=== PATIENT | male | born 1980 | race African-American/Black ===

== ENCOUNTER 2017-08-04 07:13 | Emergency (ER) | payer OTHER ==
[~2017-08-04] VITALS: Ht 165.1 cm; Wt 64.0 kg
[~2017-08-04 07:13] MED LIST: AMOX500C2 PO; CEFP250T2 PO; CODE-54 PO; CPR500T PO; HYDR-3714 PO; HYDR-3720 PO; HYDR-757 PO; LEVO500T69 PO; METR500T PO; NAPR-243 PO; SULF-222 PO
[2017-08-04] MEDS ORDERED: LIDOCAINE 2% VISCOUS 15 ML UDC PO ONE (08:15)
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
[2017-08-04] MEDS ORDERED: AMOX500C2 PO (08:34)
[2017-08-04] MEDS ORDERED: TRAM-42 PO (08:34)
[2017-08-04 08:47] VITALS: BP 130/83
== END 2017-08-04 08:46 | disposition home or self-care (01) ==
LOC: EDUNIT# 07:13 → ER 07:15
DX: K02.9 Dental caries, unspecified (principal); F17.200 Nicotine dependence, unspecified, uncomplicated; Z87.19 Personal history of other diseases of the digestive system
CPT/HCPCS: 99282